=== PATIENT | male | born 1950 | race American Indian/Alaskan Native ===

== ENCOUNTER 2020-01-11 10:38 | Day surgery (SDC) | payer MEDICARE ==
[~2020-01-11 10:38] MED LIST: WATER FOR IRRIG STERILE 2000 ML IR ONE
[2020-01-11] MEDS ORDERED: SODIUM CHLORIDE 0.9% 1000 ML 1,000 ML IV SCH (11:30)
--- NOTE | 2020-01-11 11:30 | Anesthesia Consultation ---
Anesthesia Consult and Med Hx Date of service: 01/11/20 - Airway Anesthetic Teeth Evaluation: Good ROM Head & Neck: Adequate Mental/Hyoid Distance: Adequate Mallampati Class: Class II Intubation Access Assessment: Good - Pulmonary Exam CTA: Yes - Cardiac Exam Cardiac Exam: RRR - Pre-Operative Health Status ASA Pre-Surgery Classification: ASA3 Proposed Anesthetic Plan: General - Pulmonary Hx Smoking: No Hx Sleep Apnea: No (MADELINE PRE SCREEN HIGH RISK) - Cardiovascular System Hx Hypertension: Yes (X 1 MONTH) - Endocrine Hx Non-Insulin Dependent Diabetes: Yes - Other Systems Hx Cancer: (??-H&P STATES PROSTATE CA , BUT PT DENIES)
--- NOTE | 2020-01-11 11:30 | Anesthesia Day of Surgery ---
Anesthesia Day of Surgery - Day of Surgery Patient Examined: Yes Patient H&P Reviewed: Yes Patient is NPO: Yes
[2020-01-11] MEDS ORDERED: MIDAZOLAM 2 MG/2 ML INJ ONE ×2 (11:34→14:45)
[2020-01-11] MEDS ORDERED: LACTATED RINGERS 1,000 ML ONE (11:35)
[2020-01-11] MEDS ORDERED: MIDAZOLAM 2 MG/2 ML INJ IV NR (12:00)
[2020-01-11] MEDS ORDERED: LACTATED RINGERS 1,000 ML IV SCH (12:10)
[2020-01-11] MEDS ORDERED: ceFAZolin/STERILE WATER 2 GM/20 ML SYRINGE IV NR (13:00)
[2020-01-11] MEDS ORDERED: propofoL 200 MG/20 ML VIAL IV ONE (14:46)
[2020-01-11] MEDS ORDERED: HYDROmorphone 1 MG/1 ML INJ ONE (14:46)
[2020-01-11] MEDS ORDERED: LIDOCAINE MPF (2%) 20 MG/1 ML VIAL 5 ML ONE (14:46)
[2020-01-11] MEDS ORDERED: LIDOCAINE 2% UROJECT 10 ML JELLY ONE (14:50)
[2020-01-11] MEDS ORDERED: FUROSEMIDE 40 MG/4 ML INJ ONE (15:35)
[2020-01-11] MEDS ORDERED: HYDROmorphone 1 MG/1 ML INJ IV PRN (15:57)
[2020-01-11] MEDS ORDERED: ONDANSETRON 4 MG/2 ML INJ IV PRN (15:57)
--- NOTE | 2020-01-11 16:36 | Post Operative Note ---
Date of procedure: 01/11/20 Pre-op diagnosis: quijano inc psa Post-op diagnosis: same Findings: varicescysto pus bx Procedure: cysto pus bx Anesthesia: GETA Surgeon: LIZ ALBARRAN Estimated blood loss: minimal Pathology: list (prostate) Specimen disposition: to lab Condition: stable Disposition: PACU
--- NOTE | 2020-01-11 16:37 | Discharge Summary ---
Short Stay Discharge Plan Activity: other (no straining) Weight Bearing Status: Full Weight Bearing Diet: low fat, low cholesterol, low salt, diabetic Special Instructions: other (inc fluids) Additional Instructions: FOLLOW UP IN OFFICE IN 1 WEEK, CALL FOR APPOINTMENT Follow up with: DR ALEXSANDER [Other] - 7 Days LIZ ALBARRAN MD [Staff Physician] - 7 Days Forms: Outpatient Surgery DC Inst.
--- NOTE | 2020-01-11 16:41 | Fluoroscopy Report ---
INTRAOPERATIVE FLUOROSCOPY: CYSTOGRAM INDICATION / CLINICAL INFORMATION: ENLARGED PROSTATE. TECHNIQUE: Intraoperative spot images were obtained during the procedure. FINDINGS: Fluoroscopy was provided during cystography and cystoscopy. 50 mL Omnipaque 300 utilized. Fluoroscopy Time: 0.1 minutes. Fluoroscopy Images: 3. Signer Name: Denisse Richardson MD Signed: 01/11/2020 4:37 PM Workstation Name: [id number]
[2020-01-11 18:07] VITALS: BP 187/108
--- NOTE | 2020-01-11 19:24 | Operative Report ---
PREOPERATIVE DIAGNOSES: Hematuria, irregular prostate, significantly elevated PSA previously " with severe prostatic varices, elevated bladder neck. Rock hard right lobe of the prostate. PROCEDURE: Cystoscopy, insertion of the catheter with multiple prostate biopsies. SURGEON: Dr. Felix. ANESTHESIA: MAC. FINDINGS: This is a gentleman with hypertension, multiple medical problems who had some sort of procedure in the prostate, now presents for cystoscopy with severely elevated PSA. DESCRIPTION OF PROCEDURE: The patient was brought to the operating room and placed on the operating table. Following induction of anesthesia, placed in lithotomy position, prepped and draped in usual sterile fashion. This was done under MAC. Cystoscopy showed a very elevated bladder neck with prostatic varices all over the place. Lots of inflammation. The catheter was placed. The ultrasound was placed. The prostate measured approximately 90 grams. A 13 biopsies were done. The patient tolerated the procedure well. No significant complications, brought to recovery in stable condition. JOB# [id number] AMEYA/KAREN
--- NOTE | 2020-01-12 18:25 | Ultrasound Report ---
ULTRASOUND TRANSRECTAL INDICATION / CLINICAL INFORMATION: PROSTATE BX GUIDANCE. COMPARISON: None available. FINDINGS: Ultrasound guidance was provided during transrectal prostate biopsy. Prostate measures 7.1 x 4.6 x 5.4 cm with a volume of 91 mL. Signer Name: Denisse Richardson MD Signed: 01/12/2020 6:20 PM Workstation Name: [id number]
== END 2020-01-11 18:00 | disposition home or self-care (01) ==
LOC: OR 10:38
PROVIDERS: ATTEND Urology
DX: R31.9 Hematuria, unspecified (principal); N40.0 Benign prostatic hyperplasia without lower urinary tract symptoms; N42.89 Other specified disorders of prostate; N41.8 Other inflammatory diseases of prostate; E78.00 Pure hypercholesterolemia, unspecified; I10 Essential (primary) hypertension; E11.9 Type 2 diabetes mellitus without complications; Z79.899 Other long term (current) drug therapy; Z79.84 Long term (current) use of oral hypoglycemic drugs; Z87.440 Personal history of urinary (tract) infections; Z98.890 Other specified postprocedural states; Z80.42 Family history of malignant neoplasm of prostate
CPT/HCPCS: 52005; 55700; 74430; 76872; 82962; 88305; 88344; A4217; J0690; J1170; J1940; J2250; J2704; J7030; J7120; Q9967; 51600; 88342

== ENCOUNTER 2020-02-16 09:10 | Outpatient (CLI) | payer MEDICARE ==
--- NOTE | 2020-02-16 10:19 | Ultrasound Report ---
ULTRASOUND TESTICULAR DOPPLER COMPLETE HISTORY: Unilateral inguinal hernia without obstruction or gangrene TECHNIQUE: Grayscale ultrasound with color and spectral Doppler imaging. COMPARISON: None. FINDINGS: The right testicle measures 3.3 x 2.2 x 2.5 cm. The right testicle appears heterogeneous throughout. No focal mass is identified. No convincing color Doppler or spectral Doppler flow to the right testic le could be demonstrated. There is however evidence for color Doppler flow to the right epididymis. The left testicle measures 4.7 x 2.5 x 3.5 cm. The left testicle is normal size, contour and echotext ure. Normal flow on color Doppler imaging and spectral Doppler imaging. A 1.5 cm left epididymal head cyst versus spermatocele is identified. The remainder of the left epidi dymis is unremarkable. The right epididymis is normal size but slightly heterogeneous. A small to medium right inguinal hernia containing fat is identified. No bowel loops extend to the sc rotal sac. IMPRESSION: Abnormal appearance of the right testicle as described. No convincing perfusion to the right testicle could be demonstrated on ultrasound although perfusion to the right epididymis is seen. The clinical significance of this is unclear. My concern is for right testicular torsion. 1.5 cm left epididymal head cyst versus spermatocele. Right inguinal hernia containing fat. Critical result discovered at 1010 hours hours and called to Dr. Felix at 1014 hours hours on 02/15. A read back was performed. Signer Name: Danish Martinez Jr, MD Signed: 02/16/2020 10:15 AM Workstation Name: [id number]
== END 2020-02-16 09:11 | disposition home or self-care (01) ==
LOC: US 09:10
PROVIDERS: ATTEND Urology
DX: K40.90 Unilateral inguinal hernia, without obstruction or gangrene, not specified as recurrent (principal)
CPT/HCPCS: 93975